=== PATIENT | female | born 1970 | race Caucasian/White ===

== ENCOUNTER → 2017-12-20 | Outpatient (CLI) | payer OTHER ==
[2013-07-13 06:32] VITALS: BP 98/39
[~2017-12-20] MED LIST: AMBIEN10 MG PO; KLONOPIN1 MG PO; LEXAPRO10 MG PO; MELATONIN5 M2 PO; SYNTHROID0.05 MG PO
[2017-12-20 10:19] LABS: ALBUMIN 4.4 g/dL (3.5-5.0); BUN/CREATININE RATIO 18.6 (6.0-26.0); CALCIUM 10.2 mg/dL (8.4-10.2); POTASSIUM 4.7 mmol/L (3.6-5.0); TOTAL BILIRUBIN 0.2 mg/dL (0.2-1.3); TOTAL PROTEIN 7.7 g/dL (6.3-8.2)
== END ==
LOC: LAB 09:48
PROVIDERS: Internal Medicine Gastroenterology
DX: K31.5 Obstruction of duodenum (principal); R10.11 Right upper quadrant pain; K83.4 Spasm of sphincter of Oddi; R74.8 Abnormal levels of other serum enzymes; Z88.6 Allergy status to analgesic agent; Z88.1 Allergy status to other antibiotic agents; Z88.8 Allergy status to other drugs, medicaments and biological substances

== ENCOUNTER → 2019-05-29 | Outpatient (CLI) | payer OTHER ==
[2013-07-13 06:32] VITALS: BP 98/39
[2019-05-29 08:06] LABS: EOS # 0.1 (0.04-0.40); EOS % 1.4 % (1.0-5.0); HEMATOCRIT 35.3 % (37.0-47.0); HEMOGLOBIN 11.8 g/dL (12.5-16.0); LYMPH# 1.9 (1.50-4.00); MEAN CELL VOLUME 84 fl (78-100); MEAN CORPUSCULAR HEMOGLOBIN 28 pg (27-31); MEAN CORPUSCULAR HGB CONC 33 g/dL (33-37); MEAN PLATELET VOLUME 10.5 fl (7.4-10.4); MONO # 0.3 (0.20-0.80); PLATELET COUNT 256 K/mm3 (130-400); RED BLOOD COUNT 4.18 M/mm3 (4.10-5.30); RED CELL DISTRIBUTION WIDTH 14.3 % (11.5-14.5); WHITE BLOOD COUNT 4.3 K/mm3 (4.8-10.8)
[2019-05-29 08:20] LABS: ALBUMIN 3.9 g/dL (3.5-5.0); POTASSIUM 4.2 mmol/L (3.5-5.1)
[2019-05-29 08:21] LABS: CALCIUM 9.1 mg/dL (8.3-10.5)
[2019-05-29 08:22] LABS: TOTAL PROTEIN 6.6 g/dL (6.4-8.3)
[2019-05-29 08:24] LABS: TOTAL BILIRUBIN 0.2 mg/dL (0.2-1.2)
== END ==
LOC: LAB 07:47
DX: R10.11 Right upper quadrant pain (principal)

== ENCOUNTER → 2020-02-18 | Outpatient (CLI) | payer OTHER ==
[2013-07-13 06:32] VITALS: BP 98/39
== END ==
LOC: LAB 12:14
DX: Z20.828 Contact with and (suspected) exposure to other viral communicable diseases (principal)

== ENCOUNTER → 2020-12-11 | Day surgery (SDC) | payer OTHER ==
[2013-07-13 06:32] VITALS: BP 98/39
== END ==
LOC: MSO 08:48
DX: K92.1 Melena (principal); D50.9 Iron deficiency anemia, unspecified; K64.1 Second degree hemorrhoids; K21.9 Gastro-esophageal reflux disease without esophagitis; K58.9 Irritable bowel syndrome, unspecified; K83.8 Other specified diseases of biliary tract; I10 Essential (primary) hypertension; E07.9 Disorder of thyroid, unspecified; F41.9 Anxiety disorder, unspecified; Z79.890 Hormone replacement therapy; G43.909 Migraine, unspecified, not intractable, without status migrainosus; Z79.899 Other long term (current) drug therapy; F32.9 Major depressive disorder, single episode, unspecified
CPT/HCPCS: 00813; J2704; J3010; J7120

== ENCOUNTER 2023-08-30 23:13 | Emergency (ER) | payer BC ==
[~2023-08-30] VITALS: Ht 152.4 cm; Wt 65.9 kg
[2023-08-31 01:04] LABS: HEMATOCRIT 37.4 % (37.0-47.0); HEMOGLOBIN 12.9 g/dL (12.5-16.0); LYMPH# 0.91 K/mm3 (1.50-4.00); MEAN CELL VOLUME 87 fl (78-100); MEAN CORPUSCULAR HEMOGLOBIN 30 pg (27-31); MEAN CORPUSCULAR HGB CONC 35 g/dL (33-37); MEAN PLATELET VOLUME 10.4 fl (7.4-10.4); MONO # 0.17 K/mm3 (0.20-0.80); NEU # 5.85 K/mm3 (1.40-6.50); PLATELET COUNT 274 K/mm3 (130-400); RED BLOOD COUNT 4.31 M/mm3 (4.10-5.30); RED CELL DISTRIBUTION WIDTH 14.3 % (11.5-14.5); WHITE BLOOD COUNT 6.9 K/mm3 (4.8-10.8)
[2023-08-31 01:09] LABS: ALBUMIN 4.5 g/dL (3.5-5.0)
[2023-08-31 01:10] LABS: CALCIUM 9.8 mg/dL (8.3-10.5)
[2023-08-31 01:12] LABS: TOTAL PROTEIN 7.6 g/dL (6.4-8.3)
[2023-08-31 01:13] LABS: TOTAL BILIRUBIN 0.3 mg/dL (0.2-1.2)
[2023-08-31 01:37] VITALS: BP 1401/81
== END 2023-08-31 01:37 | disposition home or self-care (01) ==
LOC: ED 23:13
PROVIDERS: Physician Assistant
DX: L30.9 Dermatitis, unspecified (principal)
CPT/HCPCS: J1100; J1200